=== PATIENT | female | born 1960 | race Caucasian/White ===

== ENCOUNTER 2023-08-25 14:15 | Outpatient (RCR) | payer OTHER, SELFPAY ==
[2023-08-25 14:39] VITALS: BP 107/69
[2023-08-25] MEDS: RECLAST 100 IV (14:53)
== END 2023-08-26 08:45 | disposition home or self-care (01) ==
LOC: OID 14:15
PROVIDERS: ATTENDING PHYSICIAN Internal Medicine Endocrinology, Diabetes & Metabolism; FAMILY PHYSICIAN Internal Medicine
DX: M81.0 Age-related osteoporosis without current pathological fracture (principal)
CPT/HCPCS: 96365; J3489

== ENCOUNTER 2024-03-10 15:08 | Emergency (ER) | payer OTHER, SELFPAY ==
--- NOTE | 2024-03-10 15:13 | ED.GENMED ---
ED Provider Triage
<Adelaide Lancaster PA-C - Last Filed: 03/10/24 15:15>
-
Patient seen by provider in Triage?: Seen in Triage
Attestation: A medical screening examination has been initiated by a qualified medical provider. Based on the assessment performed at this time, it has been determined that an emergent medical condition may exist and the patient has been informed
that further medical evaluation and possible additional diagnostic testing may be needed.
HPI: 63yoF here with dizziness. Started having abdominal pain after eating lunch. This was followed by lightheadedness. C/o feeling shaky. No CP/SOB.
GENERAL: Alert , in no apparent distress
EYE: No visual abnormalities.
NECK: Trachea midline
ENT: No visible abnormalities.
LUNGS: No acute respiratory distress
NEUROLOGICAL: Alert and oriented
SKIN: Skin intact. No visible changes.
MUSCULOSKELETAL: Moving extremities normally
PSYCH: Normal and appropriate interaction.
This is a medical evaluation conducted in person to initiate diagnostic evaluation and provide initial therapeutics. Please see further documentation by the treating clinician.
Cardiac labs and EKG ordered.
History of Present Illness
<Adelaide Lancaster PA-C - Last Filed: 03/10/24 15:15>
General
Chief Complaint: Fainting Sensation
Time Seen by Provider: 03/10/24 18:26
<KIMBER Polo - Last Filed: 03/10/24 22:06>
General
Source: patient
Exam Limitations: none
Nursing documentation reviewed up to this point in time: agreed with
History of Present Illness
History of Present Illness:
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
out. She reports her knees buckled and she could barely stand. She had no associated chest pain or shortness of breath/back pain . her sister reports she can barely get her words out. She currently still feels lightheaded and does not feel well.
She has mild headache. She complains of intermittent chills. Her abdominal pain however has since resolved
She does have a history of reflux and stopped taking her medication. She does have a follow-up appointment with GI specialist here at [facility].
Past History
<Adelaide Lancaster PA-C - Last Filed: 03/10/24 15:15>
Past History
ED Past Medical History: Other (gaucher's dz)
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
Social History
Tobacco: Smoker
Living: with family
Review of Systems
<KIMBER Polo - Last Filed: 03/10/24 22:06>
Review of Systems
Allergies reviewed?: Yes
All Other Systems: ROS reviewed and negative except as documented in HPI and ROS
Constitutional: Reports no symptoms; Denies fever, fatigue or chills
EENT: Reports no symptoms
Respiratory: Reports no symptoms; Denies trouble breathing
Cardiac: Reports no symptoms and other (felt like she was going to pass out ); Denies chest pain, palpitations or syncope
ABD/GI: Reports abdominal pain and other (Abdominal pain has since resolved); Denies nausea, vomiting or diarrhea
: Reports no symptoms
Musculoskeletal: Reports no symptoms
Skin: Reports no symptoms
Neurological: Reports no symptoms
Psychiatric: Reports no symptoms
Phy Exam
<KIMBER Polo - Last Filed: 03/10/24 22:06>
General Physical Exam
General Presentation: no apparent distress
General age: appears stated age
General Skin: warm and dry
General Habitus: normal
General Mental: alert
General Hydration: appears well hydrated
Cardiovascular Exam
Cardiovascular Exam: regular rate/rhythm, no murmur and normal peripheral pulses
Pulmonary Exam
Pulmonary Exam: lungs clear and no respiratory distress
Gastrointestinal Exam
Gastrointestinal Exam: normal bowel sounds, non tender and soft
Neurological Exam
Neurological Exam: alert and oriented x3
Musculoskeletal Exam
Musculoskeletal Exam: full ROM
Skin Exam
Skin Exam: normal color and warm/dry
Psychiatric Exam
Psychiatric Exam: normal mood/affect
Course
<Adelaide Lancaster PA-C - Last Filed: 03/10/24 15:15>
Orders/Labs/Results
Orders:
Orders
03/10/24 15:11
Electrocardiogram (*1) Urgent
Reason for Study: Syncope
EKG- Treatment ONCE
03/10/24 15:35
CMP [Comprehensive Metabolic Panel] Urgent
Complete Blood Count/With Diff Urgent
Lipase Urgent
Troponin I Urgent
03/10/24 17:08
UA Reflex to Culture [Urinalysis Reflex To Culture] Urgent
Date Specimen was Collected: 03/10/24
Time Specimen was Collected: 17:05
Urine Microscopic Reflex Cult Urgent
03/10/24 19:29
Add On- LAB Urgent
Tests Added?: lipase
03/10/24 19:36
0.9% Sodium Chloride 1000 ml [Nss] 1,000 ml IV BOLUS
03/10/24 19:37
US Abdomen Complete/Upper Urgent
Comment:
Reason For Exam: midepigSTRIC PAIN
Abnormal Lab Results
03/10/24 03/10/24
15:35 17:08
RBC 4.06 L 10^6/uL
(4.20-5.40)
MCH 33.3 H pg
(27.0-31.0)
BUN 25 H mg/dl
(7-17)
Glucose 112 H mg/dl
(70-99)
Ur Occult Blood Reflex Trace A
(Negative)
03/10/24 15:35
03/10/24 15:35
Vital Signs
Initial and Last Documented VS:
Initial Vital Signs
Temp Pulse Resp BP Pulse Ox
98.5 F 65 18 120/70 98
03/10/24 15:29 03/10/24 15:29 03/10/24 15:29 03/10/24 15:29 03/10/24 15:29
Last Documented Vital Signs
Temp Pulse Resp BP Pulse Ox
98.5 F 57 18 126/69 96
03/10/24 15:29 03/10/24 21:45 03/10/24 21:45 03/10/24 21:45 03/10/24 21:45
<KIMBER Polo - Last Filed: 03/10/24 22:06>
Orders/Labs/Results
Orders:
Orders
03/10/24 15:11
Electrocardiogram (*1) Urgent
Reason for Study: Syncope
EKG- Treatment ONCE
03/10/24 15:35
CMP [Comprehensive Metabolic Panel] Urgent
Complete Blood Count/With Diff Urgent
Lipase Urgent
Troponin I Urgent
03/10/24 17:08
UA Reflex to Culture [Urinalysis Reflex To Culture] Urgent
Date Specimen was Collected: 03/10/24
Time Specimen was Collected: 17:05
Urine Microscopic Reflex Cult Urgent
03/10/24 19:29
Add On- LAB Urgent
Tests Added?: lipase
03/10/24 19:36
0.9% Sodium Chloride 1000 ml [Nss] 1,000 ml IV BOLUS
03/10/24 19:37
US Abdomen Complete/Upper Urgent
Comment:
Reason For Exam: midepigSTRIC PAIN
Abnormal Lab Results
03/10/24 03/10/24
15:35 17:08
RBC 4.06 L 10^6/uL
(4.20-5.40)
MCH 33.3 H pg
(27.0-31.0)
BUN 25 H mg/dl
(7-17)
Glucose 112 H mg/dl
(70-99)
Ur Occult Blood Reflex Trace A
(Negative)
03/10/24 15:35
03/10/24 15:35
Vital Signs
Initial and Last Documented VS:
Initial Vital Signs
Temp Pulse Resp BP Pulse Ox
98.5 F 65 18 120/70 98
03/10/24 15:29 03/10/24 15:29 03/10/24 15:29 03/10/24 15:29 03/10/24 15:29
Last Documented Vital Signs
Temp Pulse Resp BP Pulse Ox
98.5 F 57 18 126/69 96
03/10/24 15:29 03/10/24 21:45 03/10/24 21:45 03/10/24 21:45 03/10/24 21:45
G[employer] And Spline [employer]inder consulted with Physician
G[employer] And Spline Grinder consulted with physician?: Yes
Name of Physician Consulted: Dr Cam
<Manjinder Cam, DO - Last Filed: 03/11/24 00:49>
Orders/Labs/Results
Orders:
Orders
03/10/24 15:11
Electrocardiogram (*1) Urgent
Reason for Study: Syncope
EKG- Treatment ONCE
03/10/24 15:35
CMP [Comprehensive Metabolic Panel] Urgent
Complete Blood Count/With Diff Urgent
Lipase Urgent
Troponin I Urgent
03/10/24 17:08
UA Reflex to Culture [Urinalysis Reflex To Culture] Urgent
Date Specimen was Collected: 03/10/24
Time Specimen was Collected: 17:05
Urine Microscopic Reflex Cult Urgent
03/10/24 19:29
Add On- LAB Urgent
Tests Added?: lipase
03/10/24 19:36
0.9% Sodium Chloride 1000 ml [Nss] 1,000 ml IV BOLUS
03/10/24 19:37
US Abdomen Complete/Upper Urgent
Comment:
Reason For Exam: midepigSTRIC PAIN
Abnormal Lab Results
03/10/24 03/10/24
15:35 17:08
RBC 4.06 L 10^6/uL
(4.20-5.40)
MCH 33.3 H pg
(27.0-31.0)
BUN 25 H mg/dl
(7-17)
Glucose 112 H mg/dl
(70-99)
Ur Occult Blood Reflex Trace A
(Negative)
03/10/24 15:35
03/10/24 15:35
Vital Signs
Initial and Last Documented VS:
Initial Vital Signs
Temp Pulse Resp BP Pulse Ox
98.5 F 65 18 120/70 98
03/10/24 15:29 03/10/24 15:29 03/10/24 15:29 03/10/24 15:29 03/10/24 15:29
Last Documented Vital Signs
Temp Pulse Resp BP Pulse Ox
98.5 F 57 18 126/69 96
03/10/24 15:29 03/10/24 21:45 03/10/24 21:45 03/10/24 21:45 03/10/24 21:45
<KIMBER Polo - Last Filed: 03/10/24 22:06>
MDM/Problems Addressed
MDM/Problems Addressed:
Patient is a 63-year-old female who presented to the ER for dizziness feeling like she was in a pass out. She reports after lunch she had intense abdominal pain and felt lightheaded like she was get a pass out. This was witnessed by family. She
does have a history of reflux but stopped taking her medication.
Patient presents with no complaints abdominal pain however still does not feel herself she felt lightheaded. Abdomen soft and nontender. She denies any associate fever chills chest pain shortness of breath. Her labs are unremarkable. Her EKG
shows a heart rate of 58 sinus bradycardia with incidental left posterior fascicular block. She has no cardiac history.
She denies any recent fevers is afebrile with a normal white count stable hemoglobin normal chemistries including normal lipase BUN minimally elevated given fluids in the ER.
No UTI symptoms urine negative.
Pt 's ultrasound is negative.
Case reviewed with Dr. Cam evaluated patient likely vagal response for abdominal pain however abdominal pain is completely resolved. Patient has not had any reoccurrences abdominal pain here in the ER. She does have a history reflux and
stopped taking her omeprazole.
Patient does not want to restart her omeprazole I discussed taking [id number] Pepcid but she is very reluctant. She does however have upcoming appointment with GI specialist here at [facility] patient feeling much better after fluids stable
for discharge home with outpatient follow family doctor as well as GI.
<KIMBER Polo - Last Filed: 03/10/24 22:06>
*Radiology
Radiology exam reviewed: radiology read reviewed
*Pulse Oximetry
Patient hypoxic: no
*EKG
Interpreted by ED Provider?: Yes
Interpretation: abnormal
Heart Rate: 58
Rate: normal
Rhythm: sinus
*Critical Care Note
Total Time (30-74mins, 75-104mins- exclusive of procedures): Not Applicable
ED Attending Note
<Adelaide Lancaster PA-C - Last Filed: 03/10/24 15:15>
-
Portions of this chart may have been created with voice recognition software.� Occasional wrong word or��sound alike� substitutions may have occurred due to the inherent limitations of voice recognition software.
<Manjinder Dorina, DO - Last Filed: 03/11/24 00:49>
ED Attending Note
Patient seen and examined by attending physician: Yes
I performed the substantive portion of visit, reviewed & personally made and approve the management plan that is documented in note by myself or ELIZABETH.: Yes
ED Attending Note:
Patient is a 63-year-old female with a history of Gaucher's disease who today after eating salad with some mozzarella and then developed severe periumbilical abdominal pain. Patient had nausea. Patient began to feel lightheaded and nearly passed
out. The pain is pretty much resolved now. Patient eats a diet that is rather low in fats. However the patient does states she suffers from reflux. Review of the patient's labs are pretty much unremarkable. When I examined the patient she was 9
distress. Heart was regular lungs were clear. Patient's abdomen was soft and nontender with no organomegaly or CVA tenderness. Patient had good bowel sounds. Patient shows no edema or cyanosis. Did the ultrasound had a concern that this was
gallbladder. Patient is feeling much better. Patient will be discharged.
Discharge Plan
Departure
Patient Disposition: Home (Routine Discharge)
Date of Disposition: 03/10/24
Time of Disposition: 21:55
Patient with high blood pressure during this ER visit?: No
Condition: Fair
Covid-19: Not Applicable
Discharge Problem:
Abdominal pain, vagal response
Instructions: Abdominal Pain, Adult ED
Prescriptions:
No Action
Cerdelga 84 MG capsule
84 mg PO DAILY
calcium 500 mg Tablet
500 mg PO DAILY
azelastine 137 mcg (0.1 %) Aerosol,Docena
1 spray INTRANASAL BID
fluticasone propionate [Flonase] 50 mcg/actuation Docena,Suspension
1 spray INTRANASAL DAILY
Elderberry 200 mg Capsule
200 mg PO DAILY
cholecalciferol (vitamin D3) [Vitamin D3] 125 mcg (5,000 unit) Tablet
125 mcg PO DAILY
Referrals:
Aissatou Quevedo MD [Family Provider] -
Sanjuanita Padilla MD [Active] -
Activity Restrictions/Additional Instructions:
As discussed your dizziness was likely a vagal response to your pain.
Your ultrasound and labs were normal.
You were given a copy of your EKG to bring to your family doctor's office. EKG does show a left posterior fascicular block.
As discussed stay well-hydrated. Follow-up closely with your family doctor in the next several days for reevaluation of your symptoms as well as GI( as scheduled ) It is recommended that you continue to take your acid reflux medications or
[id number] Pepcid. Return if any worsening of symptoms
Interventions
Interventions:
*Risk Screen - Suicide Last Done: 03/10/24 15:29
*General Assessment Last Done: 03/10/24 15:29
*Neglect/Abuse Screening Last Done: 03/10/24 15:29
ED- Fall Risk Assessment Last Done: 03/10/24 16:07
*ED COVID-19 Vaccine History Last Done: 03/10/24 15:29
*Nursing Disposition Last Done: 03/10/24 22:05
ED- Cardiac Assessment Last Done: 03/10/24 16:07
ED- Neurological Assessment Last Done: 03/10/24 16:07
Discharge Date and Time
Discharge Date/Time: 03/10/24 22:06
Print Language: HEBREW
[2024-03-10 15:29] VITALS: BP 120/70
[2024-03-10 15:40] LABS: % Basophils 0.5 % (0-2); % Immature Granulocytes 0.3 % (0-0.5); % Lymphocytes 29.2 % (20.5-51.1); % Monocytes 5.1 % (1.7-9.3); % Neutrophils 63.9 % (42.2-75.2); Absolute Eosinophils 0.1 10^3/uL (0-0.7); Absolute Lymphocytes 1.8 10^3/uL (1.2-3.4); Absolute Monocytes 0.3 10^3/uL (0.1-0.6); Absolute Neutrophils 3.9 10^3/uL (1.4-6.5); Hematocrit 38.5 % (37.0-47.0); Hemoglobin 13.5 g/dL (12.0-16.0); Mean Corp Hgb Conc. 35.1 g/dL (33.0-37.0); Mean Corpuscular Hgb 33.3 pg (27.0-31.0); Mean Corpuscular Volume 94.8 fL (81.0-99.0); Mean Platelet Volume 9.4 fL (7.4-10.4); Nucleated Red Blood Cells % 0 %; Platelet Count 222 10^3/uL (130-400); Red Blood Cell Count 4.06 10^6/uL (4.20-5.40); Red Cell Dist. Width 11.7 % (11.5-14.5); White Blood Cell Count 6.1 10^3/uL (4.8-10.8)
[2024-03-10 15:57] LABS: ALT (SGPT) 29 U/L (0-35); AST (SGOT) 29 U/L (14-36); Albumin 4.2 g/dl (3.5-5.0); Alkaline Phosphatase 45 U/L (38-126); Blood Urea Nitrogen 25 mg/dl (7-17); Calcium 9.5 mg/dl (8.4-10.2); Carbon Dioxide 29 mmol/L (22-30); Chloride 101 mmol/L (98-107); Glucose 112 mg/dl (70-99); Potassium 4.3 mmol/L (3.5-5.1); Sodium 141 mmol/L (135-145); Total Bilirubin 0.8 mg/dl (0.2-1.3); Total Protein 6.4 g/dl (6.3-8.2); eGFR > 60.00
[2024-03-10 16:07] LABS: Troponin I < 0.012 ng/ml
[2024-03-10 17:15] VITALS: BP 125/82
[2024-03-10 17:23] LABS: Urine Albumin Negative (Neg - Trace); Urine Bilirubin Negative (Negative); Urine Character Clear (Clear); Urine Color Yellow; Urine Glucose Negative (Negative); Urine Ketone Negative (Negative); Urine Leukocyte Negative (Negative); Urine Nitrite Negative (Negative); Urine Occult Blood Trace (Negative); Urine Urobilinogen Negative (Neg - 1+)
[2024-03-10 18:07] LABS: Urine Red Blood Cell 0-2 /HPF (0-2)
[2024-03-10] MEDS: NSS 1000 IV (19:38)
[2024-03-10 20:01] LABS: Lipase 130 U/L (23-300)
[2024-03-10 21:45] VITALS: BP 126/69
== END 2024-03-10 22:06 | disposition home or self-care (01) ==
LOC: EMR 15:08
PROVIDERS: Emergency Medicine; EMERGENCY PHYSICIAN Emergency Medicine; FAMILY PHYSICIAN Internal Medicine
DX: R55 Syncope and collapse (principal); R10.33 Periumbilical pain; R11.0 Nausea; R51.9 Headache, unspecified; R68.83 Chills (without fever); I44.5 Left posterior fascicular block; K21.9 Gastro-esophageal reflux disease without esophagitis; E75.22 Gaucher disease; Z91.148 Patient's other noncompliance with medication regimen for other reason; F17.200 Nicotine dependence, unspecified, uncomplicated; Z79.899 Other long term (current) drug therapy; Z91.030 Bee allergy status
CPT/HCPCS: 99284; 96360; 76700; 80053; 81003; 81015; 83690; 84484; 85025; 93005

== ENCOUNTER → 2024-03-15 13:36 | Outpatient (REF) | payer OTHER, SELFPAY | LOC: HWRAD 13:36 | PROVIDERS: ATTENDING PHYSICIAN Internal Medicine | DX: R07.9 Chest pain, unspecified (principal); R06.02 Shortness of breath | CPT/HCPCS: 71046 ==

== ENCOUNTER → 2024-03-22 15:27 | Outpatient (REF) | payer OTHER, SELFPAY | LOC: HWRCS 15:27 | PROVIDERS: ATTENDING PHYSICIAN Internal Medicine | DX: R55 Syncope and collapse (principal); R06.02 Shortness of breath; R07.9 Chest pain, unspecified | CPT/HCPCS: 93306 ==

== ENCOUNTER → 2024-03-28 06:41 | Outpatient (REF) | payer OTHER, SELFPAY | LOC: RCS 06:41 | PROVIDERS: ATTENDING PHYSICIAN Internal Medicine | DX: R55 Syncope and collapse (principal); R06.02 Shortness of breath; R07.9 Chest pain, unspecified | CPT/HCPCS: 78452; 93017; A9500 ==

== ENCOUNTER → 2024-04-05 13:12 | Outpatient (REF) | payer OTHER, SELFPAY | LOC: HWWDC 13:12 | PROVIDERS: ATTENDING PHYSICIAN Internal Medicine | DX: Z12.31 Encounter for screening mammogram for malignant neoplasm of breast (principal) | CPT/HCPCS: 77063; 77067 ==

== ENCOUNTER 2024-05-24 10:08 | Emergency (ER) | payer OTHER, SELFPAY ==
[2024-05-24] VITALS (15 sets, daily range): BP systolic 88–128; BP diastolic 45–80; BMI 23.2
--- NOTE | 2024-05-24 11:38 | ED.GENMED ---
History of Present Illness
General
Chief Complaint: Musculo-Skeletal Complaint
Source: patient
Exam Limitations: none
Time Seen by Provider: 05/24/24 10:32
History of Present Illness
History of Present Illness:
FOOSH injury carrying trash can right wrist. Also landed on her buttock although no buttock pain. No LOC. No syncope. No head injury chest pain abdominal pain or other complaint.
Past History
Past History
ED Past Medical History: Other (gaucher's dz)
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
Social History
Tobacco: Smoker
Living: with family
Review of Systems
Review of Systems
All Other Systems: Not applicable
Phy Exam
Physical Exam
Physical Exam:
TRAUMA EXAM:
VITAL SIGNS: Vital signs reviewed, cooperative
DISTRESS: No active disease
EYES: Pupils reactive, no orbital trauma
NOSE: No deformity or epistaxis
FACE AND SCALP: No scalp or facial trauma
NECK: Supple nontender
BACK: Back nontender, pelvis stable to compression
RESPIRATORY: No distress, breath sounds normal, no tender chest wall
CARDIAC: No murmur, pulses equal and strong
ABDOMEN: Soft nontender bowel sounds normal
SKIN: Skin intact no bleeding, color normal
EXTREMITIES: Deformity of the right wrist. No open fracture. Proximal forearm nontender. Elbow stable. Shoulder stable.
NEUROLOGICAL: Alert, oriented, no motor deficits
PSYCH: Mood affect normal
Course
Orders/Labs/Results
Orders:
Orders
05/24/24 10:11
CR Wrist - Right Min 3 Views Urgent
Comment:
Reason For Exam: injury, slip and fall
05/24/24 11:36
IV Insert/Care/Rem.- Treatment PRN
HYDROmorphone [Dilaudid] 0.5 mg IV NOW STA
05/24/24 11:40
Ondansetron Injectable [Zofran] 4 mg .ROUTE .STK-MED ONE
05/24/24 11:41
Propofol [Diprivan] 20 ml .ROUTE .STK-MED
05/24/24 11:47
Ondansetron Injectable [Zofran] 4 mg IV NOW STA
05/24/24 12:14
Wrist, Right 2 Views CR [CR Wrist - Right Min 2 Views] Urgent
Comment: portable- RM 33
Reason For Exam: post reduction
05/24/24 12:17
HYDROmorphone [Dilaudid] 0.5 mg IV NOW STA
Vital Signs
Initial and Last Documented VS:
Initial Vital Signs
Temp Pulse Resp BP Pulse Ox
98.0 F 72 20 92/60 99
05/24/24 10:24 05/24/24 10:24 05/24/24 10:24 05/24/24 10:24 05/24/24 10:24
Last Documented Vital Signs
Temp Pulse Resp BP Pulse Ox
98.1 F 59 17 104/61 99
05/24/24 13:00 05/24/24 13:01 05/24/24 13:01 05/24/24 13:01 05/24/24 13:00
Procedures
Moderate Sedation
ASA Risk Score: Class I
Chart and allergies reviewed: Yes
Consent for anesthesia obtained: Yes
Time out completed (validating right patient & procedure): Yes
Moderate Sedation Start Time(when first medication is given): 13:00
History of difficult intubation: No
Airway free of obstruction: Yes
Patient has a gag reflex: Yes
Patient is able to open mouth: Yes
Patient has no dentures: Yes
Patient has no loose teeth: Yes
Medication administered by Provider during Moderate Sedation: IV Propofol (mg)
Total dose administered: 40
Time drug administered: 14:00
Moderate Sedation Procedure End Time: 14:11
Joint/Fracture Reduction
Right Wrist:
Joint reduced: with anesthesia sedation
Anesthesia/sedation: Moderate sedation
Injury was: closed
Further treatement: needs re-check only
Post reduction exam: stable
Capillary Refill: normal
Normal distal neurovascular exam?: Yes
*Radiology
Radiology exam reviewed: preliminary read by ED provider (Comminuted angulated distal radius fracture yeah that is how this is) and radiology read reviewed (Impacted dorsally angulated comminuted distal radius fracture)
*Pulse Oximetry
Patient hypoxic: no
*Critical Care Note
Total Time (30-74mins, 75-104mins- exclusive of procedures): Not Applicable
Update Note
Update Note:
Follow-up x-rays appeared well. Patient has remained medically stable. Orthopedics contacted for follow-up. Happy with reduction results
ED Attending Note
-
Portions of this chart may have been created with voice recognition software.� Occasional wrong word or��sound alike� substitutions may have occurred due to the inherent limitations of voice recognition software.
Discharge Plan
Departure
Patient Disposition: Home (Routine Discharge)
Date of Disposition: 05/24/24
Time of Disposition: 14:06
Patient with high blood pressure during this ER visit?: No
Discharge Problem:
Comminuted Colles' fracture
Instructions: Wrist Fracture (DC), MODERATE SEDATION ADULT
Prescriptions:
New
hydrocodone-acetaminophen 5-300 mg tablet
1 tab PO Q4H PRN (Reason: Pain) Qty: 14 0RF
No Action
Cerdelga 84 MG capsule
84 mg PO DAILY
calcium 500 mg Tablet
500 mg PO DAILY
azelastine 137 mcg (0.1 %) Aerosol,Powell
1 spray INTRANASAL BID
fluticasone propionate [Flonase] 50 mcg/actuation Powell,Suspension
1 spray INTRANASAL DAILY
Elderberry 200 mg Capsule
200 mg PO DAILY
cholecalciferol (vitamin D3) [Vitamin D3] 125 mcg (5,000 unit) Tablet
125 mcg PO DAILY
Referrals:
Aissatou Quevedo MD [Family Provider] -
Matti Whyte MD [Active] - Follow up in 2-3 days
Interventions
Interventions:
*Risk Screen - Suicide Last Done: 05/24/24 10:24
*General Assessment Last Done: 05/24/24 10:24
*Neglect/Abuse Screening Last Done: 05/24/24 10:24
ED- Fall Risk Assessment Last Done: 05/24/24 10:48
*ED COVID-19 Vaccine History Last Done: 05/24/24 10:24
ED-Musculoskeletal Assessment Last Done: 05/24/24 10:48
Discharge Date and Time
Print Language: OCCITAN
[2024-05-24] MEDS: ZOFRAN 4 MG IV (11:47)
[2024-05-24] MEDS: DILAUDID 0.5 MG IV ×2 (11:48→12:20)
== END 2024-05-24 14:38 | disposition home or self-care (01) ==
LOC: EMR 10:08
PROVIDERS: EMERGENCY PHYSICIAN Emergency Medicine; FAMILY PHYSICIAN Internal Medicine
DX: S52.531A Colles' fracture of right radius, initial encounter for closed fracture (principal); W01.0XXA Fall on same level from slipping, tripping and stumbling without subsequent striking against object, initial encounter
CPT/HCPCS: 25605; 99285; 99152; 73100; 73110

== ENCOUNTER 2024-08-26 14:25 | Outpatient (RCR) | payer OTHER, SELFPAY ==
[2024-08-26] MEDS: RECLAST 100 IV (14:47)
[2024-08-26 14:52] VITALS: BP 124/75
== END 2024-08-29 08:52 | disposition home or self-care (01) ==
LOC: OID 14:25
PROVIDERS: ATTENDING PHYSICIAN Internal Medicine Endocrinology, Diabetes & Metabolism; FAMILY PHYSICIAN Internal Medicine
DX: M81.0 Age-related osteoporosis without current pathological fracture (principal)
CPT/HCPCS: 96365; J3489

== ENCOUNTER → 2025-04-21 06:37 | Outpatient (REF) | payer OTHER, SELFPAY | LOC: HWRAD 06:37 | PROVIDERS: ATTENDING PHYSICIAN Internal Medicine Endocrinology, Diabetes & Metabolism; FAMILY PHYSICIAN Internal Medicine | DX: M81.0 Age-related osteoporosis without current pathological fracture (principal) | CPT/HCPCS: 77080 ==

== ENCOUNTER → 2025-05-24 13:26 | Outpatient (REF) | payer OTHER, SELFPAY | LOC: WDC 13:26 | PROVIDERS: ATTENDING PHYSICIAN Student in an Organized Health Care Education/Training Program; FAMILY PHYSICIAN Internal Medicine | DX: Z12.31 Encounter for screening mammogram for malignant neoplasm of breast (principal) | CPT/HCPCS: 77063; 77067 ==

== ENCOUNTER → 2025-05-26 13:06 | Outpatient (REF) | payer OTHER, SELFPAY | LOC: MRI 3T 13:06 | PROVIDERS: ATTENDING PHYSICIAN Medical Genetics Clinical Biochemical Genetics; FAMILY PHYSICIAN Internal Medicine | DX: E75.22 Gaucher disease (principal) | CPT/HCPCS: 74183; A9575 ==